=== PATIENT | male | born 1970 | race African-American/Black ===

== ENCOUNTER 2016-04-17 10:58 | Emergency (ER) | payer MEDICAID ==
[~2016-04-17] VITALS: Ht 180.3 cm; Wt 158.8 kg
[2016-04-17 11:54] VITALS: BP 154/110
== END 2016-04-17 12:39 | disposition home or self-care (01) ==
LOC: ER 10:58
DX: S46.911A Strain of unspecified muscle, fascia and tendon at shoulder and upper arm level, right arm, initial encounter (principal); I10 Essential (primary) hypertension; F17.210 Nicotine dependence, cigarettes, uncomplicated; X50.9XXA Other and unspecified overexertion or strenuous movements or postures, initial encounter; Y93.89 Activity, other specified; Y99.9 Unspecified external cause status; Y92.89 Other specified places as the place of occurrence of the external cause

== ENCOUNTER 2018-08-23 16:36 | Emergency (ER) | payer SELFPAY ==
[~2018-08-23] VITALS: Ht 180.3 cm; Wt 63.7 kg
[2018-08-23 18:12] LABS: Eosinophils # (auto) 0.1 uL; Monocytes # (auto) 1.3 uL; Platelet Count (auto) 255 10^3/uL (140-450); White Blood Cell 9.6 10^3/uL (4.4-10.8)
[2018-08-23 18:16] LABS: Basophils # (auto) 0.1 uL; Eosinophils % (auto) 1.5 % (0.0-7.0); Hematocrit 45.9 % (41.0-53.0); Hemoglobin 15.5 g/dL (13.5-17.5); Lymphocytes # (auto) 2.7 uL; Lymphocytes % (auto) 28.4 % (10.0-50.0); Mean Corpuscular Hemoglobin 27.1 pg (28.0-32.0); Mean Corpuscular Hgb Conc. 33.7 g/dL (32.0-36.0); Mean Corpuscular Volume 80.2 fL (80.0-100.0); Monocytes % (auto) 13.2 % (0.0-12.0); Neutrophils # (auto) 5.4 uL; Neutrophils % (auto) 55.9 % (37.0-80.0); Nucleated Red Blood Cells % 0.3 %; Red Blood Cells 5.73 10^6/uL (4.5-5.90)
[2018-08-23 18:28] LABS: Albumin 3.3 g/dL (3.4-5.0); BUN/Creatinine Ratio 18.2; Calcium 8.8 mg/dL (8.5-10.1); Magnesium 2.5 mg/dL (1.6-2.6); Potassium 3.2 mmol/L (3.5-5.1)
[2018-08-23 18:33] LABS: Bilirubin, Total 0.5 mg/dL (0.2-1.0); Total Protein 6.9 g/dL (6.4-8.2)
[2018-08-23 19:22] VITALS: BP 131/95
== END 2018-08-23 20:16 | disposition left against medical advice (07) ==
LOC: EDBD 16:36 → ER 16:39
DX: R55 Syncope and collapse (principal); Z53.21 Procedure and treatment not carried out due to patient leaving prior to being seen by health care provider
CPT/HCPCS: 36415; 70450; 80053; 82962; 83735; 84484; 85025

== ENCOUNTER 2021-01-19 23:32 | Emergency (ER) | payer MEDICAID, OTHER ==
[~2021-01-19] VITALS: Ht 180.3 cm; Wt 140.6 kg
[2021-01-20] MEDS ORDERED: IOHEXOL 350 MG/ML 100ML IJ ONE (00:11)
[2021-01-20] MEDS ORDERED: ASPirin 81 mg TAB PO ONE (00:15)
[2021-01-20] MEDS ORDERED: LABETALOL HCL 5 MG/ML 4ML SYRINGE IV ONE (00:15)
[2021-01-20] MEDS ORDERED: PHENTOLAMINE MESYLATE 5 MG INJ VIAL SUBCUT PRN (00:15)
[2021-01-20 00:37] LABS: Hemoglobin 14.7 g/dL (13.5-17.5); Nucleated Red Blood Cells % 0.7 %
[2021-01-20 00:39] LABS: Basophils # (auto) 0 10 ^3/uL (0-0.2); Basophils % (auto) 0.3 % (0.0-2.0); Eosinophils # (auto) 0 10 ^3/uL (0-0.8); Eosinophils % (auto) 0.1 % (0.0-7.0); Hematocrit 43.9 % (41.0-53.0); Lymphocytes % (auto) 10.6 % (10.0-50.0); Mean Corpuscular Hemoglobin 26.6 pg (28.0-32.0); Mean Corpuscular Hgb Conc. 33.6 g/dL (32.0-36.0); Mean Corpuscular Volume 79.2 fL (80.0-100.0); Monocytes # (auto) 0.8 10 ^3/uL (0-1.3); Monocytes % (auto) 8.2 % (0.0-12.0); Neutrophils # (auto) 7.9 10 ^3/uL (1.6-8.6); Neutrophils % (auto) 80.8 % (37.0-80.0); Red Blood Cells 5.54 10^6/uL (4.5-5.90); Red Cell Distribution Width 15.5 % (11.8-14.3); White Blood Cell 9.8 10^3/uL (4.4-10.8)
[2021-01-20 00:51] LABS: Albumin 3.2 g/dL (3.4-5.0); BUN/Creatinine Ratio 11.3; Calcium 8.5 mg/dL (8.5-10.1); Potassium 3.5 mmol/L (3.5-5.1)
[2021-01-20 00:56] LABS: Bilirubin, Total 0.6 mg/dL (0.2-1.0); Total Protein 6.6 g/dL (6.4-8.2)
[2021-01-20 00:59] LABS: INR 1.09 (0.9-1.15); Partial Thromboplastin Time 23.8 sec (23.6-33.0)
[2021-01-20 01:59] LABS: Lactic Acid w/Reflex 2.8 mmol/L (0.4-2.0)
[2021-01-20] MEDS ORDERED: LABETALOL INJECTION 250 MG in SODIUM CHL 0.9% 200 ML IV ONE (02:00)
[2021-01-20] MEDS ORDERED: LABETALOL HCL 5 MG/ML ML 20ML VIAL IV ONE ×3 (02:03→03:46)
[2021-01-20 04:10] VITALS: BP 138/97
== END 2021-01-20 04:16 | disposition short-term general hospital (02) ==
LOC: EDBD 23:32 → EDUNIT# 23:32 → ER 23:32
DX: I71.02 Dissection of abdominal aorta (principal); I71.01 Dissection of thoracic aorta; I71.4 Abdominal aortic aneurysm, without rupture; I16.1 Hypertensive emergency; I10 Essential (primary) hypertension; F12.10 Cannabis abuse, uncomplicated; Z20.822 Contact with and (suspected) exposure to COVID-19
CPT/HCPCS: 36415; 71275; 74175; 80053; 83605; 83880; 84484; 85025; 85610; 85730; 86850; 86900; 86901; 87426; 93005; 96365; 96366; 96368; 96375; 99291; J3490

== ENCOUNTER 2021-05-23 15:52 | Emergency (ER) | payer OTHER ==
[~2021-05-23] VITALS: Ht 180.3 cm; Wt 144.9 kg
[2021-05-23 15:57] VITALS: BP 158/102
[2021-05-23] MEDS ORDERED: ASPirin 81 mg TAB PO ONE (16:00)
[2021-05-23 16:46] LABS: Basophils # (auto) 0 10 ^3/uL (0-0.2); Basophils % (auto) 0.4 % (0.0-2.0); Eosinophils # (auto) 0 10 ^3/uL (0-0.8); Eosinophils % (auto) 0.2 % (0.0-7.0); Hematocrit 50.2 % (41.0-53.0); Hemoglobin 16.5 g/dL (13.5-17.5); Lymphocytes % (auto) 12.7 % (10.0-50.0); Mean Corpuscular Hemoglobin 26.1 pg (28.0-32.0); Mean Corpuscular Volume 79.2 fL (80.0-100.0); Monocytes # (auto) 0.6 10 ^3/uL (0-1.3); Monocytes % (auto) 8.5 % (0.0-12.0); Neutrophils # (auto) 5.9 10 ^3/uL (1.6-8.6); Neutrophils % (auto) 78.2 % (37.0-80.0); Nucleated Red Blood Cells % 0.7 %; Red Blood Cells 6.34 10^6/uL (4.5-5.90); Red Cell Distribution Width 15.8 % (11.8-14.3); White Blood Cell 7.5 10^3/uL (4.4-10.8)
[2021-05-23 17:04] LABS: Albumin 3.2 g/dL (3.4-5.0); Calcium 8.5 mg/dL (8.5-10.1); Magnesium 2.2 mg/dL (1.6-2.6); Potassium 3.2 mmol/L (3.5-5.1)
[2021-05-23 17:05] LABS: INR 1.12 (0.9-1.15); Partial Thromboplastin Time 25.1 sec (23.6-33.0)
[2021-05-23 17:28] LABS: BUN/Creatinine Ratio 10.5; Bilirubin, Total 1.1 mg/dL (0.2-1.0); Total Protein 7.3 g/dL (6.4-8.2)
== END 2021-05-23 18:05 | disposition left against medical advice (07) ==
LOC: ER 15:52
DX: R07.89 Other chest pain (principal); R11.0 Nausea; R06.02 Shortness of breath; I10 Essential (primary) hypertension
CPT/HCPCS: 36415; 80053; 83735; 84484; 85025; 85610; 85730; 93005

== ENCOUNTER 2021-08-28 05:04 | Emergency (ER) | payer OTHER ==
[~2021-08-28] VITALS: Ht 180.3 cm; Wt 145.1 kg
[2021-08-28 05:25] VITALS: BP 179/118
[2021-08-28 06:41] LABS: Basophils # (auto) 0 10 ^3/uL (0-0.2); Basophils % (auto) 0.5 % (0.0-2.0); Eosinophils # (auto) 0 10 ^3/uL (0-0.8); Hemoglobin 14.3 g/dL (13.5-17.5); Lymphocytes # (auto) 1.7 10 ^3/uL (0.4-5.4); Monocytes # (auto) 0.9 10 ^3/uL (0-1.3); White Blood Cell 8.6 10^3/uL (4.4-10.8)
[2021-08-28 06:44] LABS: Eosinophils % (auto) 0.4 % (0.0-7.0); Hematocrit 41.6 % (41.0-53.0); Lymphocytes % (auto) 19.4 % (10.0-50.0); Mean Corpuscular Hemoglobin 27.2 pg (28.0-32.0); Mean Corpuscular Hgb Conc. 34.3 g/dL (32.0-36.0); Mean Corpuscular Volume 79.2 fL (80.0-100.0); Monocytes % (auto) 10.6 % (0.0-12.0); Neutrophils # (auto) 5.9 10 ^3/uL (1.6-8.6); Neutrophils % (auto) 69.1 % (37.0-80.0); Nucleated Red Blood Cells % 0.8 %; Red Blood Cells 5.25 10^6/uL (4.5-5.90); Red Cell Distribution Width 16.1 % (11.8-14.3)
[2021-08-28 07:04] LABS: Albumin 3.4 g/dL (3.4-5.0); Calcium 8.9 mg/dL (8.5-10.1); Potassium 3.3 mmol/L (3.5-5.1)
[2021-08-28 07:06] LABS: BUN/Creatinine Ratio 14.7; Bilirubin, Total 0.9 mg/dL (0.2-1.0); Total Protein 7.2 g/dL (6.4-8.2)
[2021-08-28] MEDS: CLINDAMYCIN 900MG IV 50 ML IV ONE (10:05)
[2021-08-28] MEDS: cloNIDine HCL 0.1 MG TAB PO ONE (10:06)
[2021-08-28] MEDS: cefTRIAXone 1GM/50ML D5W 50 ML IV ONE (10:06)
[2021-08-28] MEDS: POTASSIUM EFFERVESENT TAB 25 MEQ PO ONE (10:06)
[2021-08-28] MEDS: FUROSEMIDE 40 MG/4 ML VIAL IV ONE (10:06)
[2021-08-28] MEDS ORDERED: CEPH-509 PO (10:22)
[2021-08-28] MEDS ORDERED: CLIN300C8 PO (10:22)
[2021-08-28] MEDS ORDERED: IBU600T PO (10:23)
== END 2021-08-28 10:32 | disposition left against medical advice (07) ==
LOC: ER 05:04
DX: I11.0 Hypertensive heart disease with heart failure (principal); I50.9 Heart failure, unspecified; E87.6 Hypokalemia; R60.0 Localized edema; F12.10 Cannabis abuse, uncomplicated; I10 Essential (primary) hypertension
CPT/HCPCS: 36415; 71045; 80053; 83880; 85025; 93970; 99291